=== PATIENT | female | born 1950 | race Caucasian/White ===

== ENCOUNTER 2017-06-19 08:00 | Outpatient (CLI) | payer MEDICARE | END 2017-06-19 08:01 | disposition home or self-care (01) | LOC: BICULT 08:00 | PROVIDERS: ATTEND Internal Medicine Nephrology | DX: N18.9 Chronic kidney disease, unspecified (principal); I71.4 Abdominal aortic aneurysm, without rupture; Z90.81 Acquired absence of spleen | CPT/HCPCS: 76700; 93976 ==

== ENCOUNTER 2017-08-07 12:41 | Outpatient (CLI) | payer MEDICARE | END 2017-08-07 12:42 | disposition home or self-care (01) | LOC: BICCT 12:41 | PROVIDERS: ATTEND Family Medicine | DX: J32.9 Chronic sinusitis, unspecified (principal); J34.1 Cyst and mucocele of nose and nasal sinus ==

== ENCOUNTER 2018-12-04 08:51 | Outpatient (CLI) | payer MEDICARE | END 2018-12-04 08:52 | disposition home or self-care (01) | LOC: CTENTCT 08:51 | PROVIDERS: ATTEND Otolaryngology Plastic Surgery within the Head & Neck | DX: J32.9 Chronic sinusitis, unspecified (principal) | CPT/HCPCS: 70486 ==

== ENCOUNTER 2019-03-30 06:48 | Day surgery (SDC) | payer MEDICARE ==
[2019-03-27 12:49] VITALS: BMI 18.8
--- NOTE | 2019-03-30 10:24 | OP ---
DATE OF PROCEDURE: 03/30/2019 PREPROCEDURE DIAGNOSES: 1. Reflux. 2. Epigastric pain, postprandial. 3. Early satiety. 4. Weight loss. 5. Normal comprehensive metabolic profile and CBC. POSTPROCEDURE DIAGNOSES: 1. Hiatal hernia. 2. Mild gastritis. Neither of which explained the patient's symptoms. PROCEDURE PERFORMED: Esophagogastroduodenoscopy with biopsy. RECOMMENDATIONS: CT scan of the abdomen and pelvis later this week and follow up in the office quickly after that. ANESTHESIA: TIVA. PROCEDURE IN DETAIL: The patient was informed of the risks, benefits, and possible complications of endoscopy including perforation, reaction to medication, and aspiration. Informed consent was obtained. The patient was brought to endoscopy suite, where she was sedated in gradual fashion. Once she was comfortable, a bite block was placed inside her orifice. The endoscope was advanced through the esophagus, stomach, and second and third portions of the duodenum and was slowly removed. The esophagus was normal. There was about 4 to 5 cm hiatal hernia, sliding type. There was no evidence of stricture in the esophagus. The hiatal hernia was normal without any Yuan ulcers or erosions or masses or lesions. Retroflexed views were normal in this area, and then evaluation of the entire stomach revealed good distention. There was some old coffee-ground material in the stomach, but no ulcers, masses, or lesions were seen. Stomach had normal distensibility. Pyloric channel was patent. Duodenum was normal to third portion. Retroflexed views in the stomach were otherwise normal. There was mild erythema in the antrum. Biopsies were obtained from this area. The stomach was then desufflated. The scope was removed. The patient tolerated the procedure well. There were no complications. Job ID: [id number]
[2019-03-30] MEDS ORDERED: PROPOFOL 200 MG/20 ML VIAL ONE (13:16)
== END 2019-03-30 10:40 | disposition home or self-care (01) ==
LOC: SDC 06:48
PROVIDERS: ATTEND Internal Medicine Gastroenterology
PROC: 0DD78ZX Extraction of Stomach, Pylorus, Via Natural or Artificial Opening Endoscopic, Diagnostic (ICD-10-PCS; principal; 2019-03-30)
DX: K31.89 Other diseases of stomach and duodenum (principal); K21.9 Gastro-esophageal reflux disease without esophagitis; K44.9 Diaphragmatic hernia without obstruction or gangrene; I25.10 Atherosclerotic heart disease of native coronary artery without angina pectoris; I25.2 Old myocardial infarction; I10 Essential (primary) hypertension; E78.00 Pure hypercholesterolemia, unspecified; F17.200 Nicotine dependence, unspecified, uncomplicated; R63.4 Abnormal weight loss; Z68.1 Body mass index [BMI] 19.9 or less, adult; Z79.82 Long term (current) use of aspirin; Z79.899 Other long term (current) drug therapy; Z88.2 Allergy status to sulfonamides; Z88.5 Allergy status to narcotic agent
CPT/HCPCS: 88305; 88312; J2704

== ENCOUNTER 2019-04-03 12:26 | Outpatient (CLI) | payer MEDICARE ==
--- NOTE | 2019-04-03 13:32 | CT ---
CT ABDOMEN AND PELVIS WITH IV CONTRAST 04/03/2019 CLINICAL INFORMATION: Epigastric abdominal pain with nausea vomiting and weight loss. COMPARISON: None. Technique: Multiple contiguous axial CT images are obtained through the abdomen and pelvis with IV contrast. Cor onal reformatted images are provided. FINDINGS: Lower Chest: There is mild elevation of the left hemidiaphragm with mild volume loss present at each lung base. Vessels: Vascular calcifications are seen in the coronary arteries. There is eccentric atheroscleroti c plaque and calcifications involving the visualized distal thoracic aorta. The thoracic aorta at the level of the aortic hiatus measures 3.1 cm with prominent eccentric mural thrombus. There is a ju xtarenal abdominal aortic aneurysm with prominent mural thrombus. This aneurysm measures 5.3 cm transverse x4.4 cm AP with greatest measurement on ultrasound examination on 06/19/2017 of 4.2 cm. Th ere is prominent calcified atherosclerotic plaque and atherosclerotic irregularity involving the abdominal aorta. Just below the level of the infrarenal abdominal aortic aneurysm which extends for a length of 5.9 cm is a focal area of ectasia with eccentric thrombus. Dense vascular calcifications are seen involving the iliac arteries which limits evaluation of the lumen of the iliac arteries edwige cially on the right. Abdomen: Portal vein:Patent. Gallbladder: Within normal limits for CT imaging. Liver: A tiny punctate too small to characterize hypodense lesion is seen in the right hepatic lobe. The liver otherwise has a normal CT appearance. Spleen: Not visualized and likely surgically absent. Pancreas: within normal limits. Adrenals: There is mild nonspecific adrenal thickening. There is a small 1 cm nodule involving the ri ght adrenal gland which cannot be further characterized on this nonenhanced CT scan exam. Kidneys: Subcentimeter too small to characterize hypodense lesions are seen in each kidney. Mild deborah l cortical scarring is seen at the inferior pole right kidney. There is no hydronephrosis Bowel: A small hiatal hernia is present. Loops of small bowel are normal in caliber. Small to moderat e amount of retained fecal material is seen in the colon. Appendix: Not visualized, but there are no secondary signs to suggest appendicitis. Peritoneum: No ascites or free air; no fluid collection. Mesentery and Retroperitoneum: No enlarged mesenteric or retroperitoneal lymph nodes. Abdominal Wall: within normal limits. Pelvis: Reproductive Organs: Evidence of hysterectomy. Pelvis within normal limits. Bladder: within normal limits. Bones: Degenerative changes are seen in the spine. IMPRESSION: 1. Large juxtarenal abdominal aortic aneurysm with large amount of mural thrombus with greatest trans verse measurement of 5.3 cm. The lumen at this level measures 1.9 cm. Focal area of ectasia in the abdominal aorta is seen just below the level of the aneurysm. There is also mild aneurysmal dilatatio n of the aorta at the level of the aortic hiatus measuring 3.1 cm. 2. Approximately 10 mm right adrenal nodule which cannot be further characterized on this exam. Nonen hanced CT abdomen with be helpful for further evaluation. 3. Small hiatal hernia. 4. Subcentimeter too small to characterize hypodense lesion right hepatic lobe with subcentimeter too small to characterize hypodense lesions in each kidney. 5. Hysterectomy.
== END 2019-04-03 12:27 | disposition home or self-care (01) ==
LOC: BICCT 12:26
PROVIDERS: ATTEND Internal Medicine Gastroenterology
DX: R10.13 Epigastric pain (principal); R11.2 Nausea with vomiting, unspecified; R63.4 Abnormal weight loss; I71.4 Abdominal aortic aneurysm, without rupture; I74.09 Other arterial embolism and thrombosis of abdominal aorta; E27.8 Other specified disorders of adrenal gland; K44.9 Diaphragmatic hernia without obstruction or gangrene; N28.9 Disorder of kidney and ureter, unspecified; K76.9 Liver disease, unspecified; Z90.710 Acquired absence of both cervix and uterus
CPT/HCPCS: 74177

== ENCOUNTER 2019-06-11 12:18 | Outpatient (CLI) | payer MEDICARE ==
[2019-06-11 13:07] LABS: #Basophils 0.1 thou/uL (0.0-0.2); #Eosinphils 0.2 thou/uL (0.0-0.7); #Lymphocytes 3.5 thou/uL (1.20-3.40); #Monocytes 0.7 thou/uL (0.11-0.59); #Neutrophils 4.1 thou/uL (1.40-6.50); %Basophils 1.4 % (0.0-1.0); %Eosinophils 2.9 % (0.0-10.0); %Lymphocytes 40.5 % (21.0-51.0); %Monocytes 7.9 % (0.0-10.0); %Neutrophils 47.3 % (42.0-75.0); Hemoglobin 15.5 g/dL (12.0-16.0); Mean Corpuscular HGB CONC 32.9 g/dL (32.0-36.0); Mean Corpuscular Hemoglobin 30.7 pg (27.0-31.0); Mean Corpuscular Volume 93.3 fL (78.0-98.0); Mean Platelet Volume 7.2 fL (7.4-10.4); Platelet Count 384 thou/uL (130-400); RBC Distribution Width 13.7 % (11.5-14.5); Red Blood Cell (RBC) Count 5.07 mill/uL (4.20-5.40); White Blood Cell (WBC) Count 8.6 thou/uL (4.8-10.8)
[2019-06-11 13:31] LABS: ALT (SGPT) 17 U/L (8-55); AST (SGOT) 21 U/L (5-34); Albumin 4.5 g/dL (3.4-4.8); Alkaline Phosphatase 97 U/L (40-110); Anion Gap 12 mmol/L (10-20); BUN (Urea Nitrogen) 10 mg/dL (9.8-20.1); Bilirubin, Total 0.5 mg/dL (0.2-1.2); Calc. Creatinine Clearance 0 mL/min (70-130); Calcium 9.9 mg/dL (7.8-10.44); Carbon Dioxide 29 mmol/L (23-31); Chloride 105 mmol/L (98-107); Estimated GFR-MDRD 76; Globulin 3.3 g/dL (2.4-3.5); Glucose 106 mg/dL (83-110); Potassium 3.9 mmol/L (3.5-5.1); Protein, Total 7.8 g/dL (6.0-8.3); Sodium 142 mmol/L (136-145)
== END 2019-06-11 12:19 | disposition home or self-care (01) ==
LOC: LABBT 12:18
PROVIDERS: ATTEND Internal Medicine Cardiovascular Disease
DX: Z01.818 Encounter for other preprocedural examination (principal); I25.10 Atherosclerotic heart disease of native coronary artery without angina pectoris
CPT/HCPCS: 80053; 85025; 93005; 93010

== ENCOUNTER 2019-06-18 05:55 | Day surgery (SDC) | payer MEDICARE ==
[2019-06-11 12:25] VITALS: BMI 19.2
[2019-06-18] MEDS ORDERED: Heparin (Artline) 1,000 ML ONE (06:30)
[2019-06-18] MEDS ORDERED: Lidocaine 1% (PF) 30 ML VIAL ONE ×2 (06:30→07:21)
[2019-06-18] MEDS ORDERED: Heparin 10,000 UNITS/1 ML VIAL ONE (06:30)
[2019-06-18 06:52] LABS: Cardiac Risk 2.9 (Less than 4.5)
[2019-06-18] MEDS ORDERED: Midazolam HCl 2 mg/2 ml Vial ONE (06:59)
[2019-06-18] MEDS ORDERED: Fentanyl 100 MCG/2 ML VIAL ONE (07:00)
[2019-06-18] MEDS ORDERED: Atropine Sulfate 1 mg/10 ml Syringe ONE (07:29)
[2019-06-18] MEDS ORDERED: Protamine Sulfate 50 MG/5 ML VIAL ONE (07:48)
[2019-06-18] MEDS ORDERED: Iopamidol 370 76% 100 ML VIAL ONE (14:26)
[2019-06-18] MEDS ORDERED: Iopamidol 370 76% 50 ML VIAL FS ONE (14:26)
== END 2019-06-18 15:08 | disposition home or self-care (01) ==
LOC: CCL 05:55
PROVIDERS: ATTEND Internal Medicine Cardiovascular Disease
PROC: 4A023N7 Measurement of Cardiac Sampling and Pressure, Left Heart, Percutaneous Approach (ICD-10-PCS; principal; 2019-06-18)
PROC: B2111ZZ Fluoroscopy of Multiple Coronary Arteries using Low Osmolar Contrast (ICD-10-PCS; 2019-06-18)
DX: I25.10 Atherosclerotic heart disease of native coronary artery without angina pectoris (principal); I71.6 Thoracoabdominal aortic aneurysm, without rupture; E78.00 Pure hypercholesterolemia, unspecified; I11.9 Hypertensive heart disease without heart failure; F32.9 Major depressive disorder, single episode, unspecified; H54.62 Unqualified visual loss, left eye, normal vision right eye; Z86.73 Personal history of transient ischemic attack (TIA), and cerebral infarction without residual deficits; Z87.891 Personal history of nicotine dependence; Z79.82 Long term (current) use of aspirin; Z79.899 Other long term (current) drug therapy; Z88.2 Allergy status to sulfonamides; Z88.5 Allergy status to narcotic agent; Z95.5 Presence of coronary angioplasty implant and graft
CPT/HCPCS: 76942; 80061; 85347; 93458; 99152; 99153; C1769; J0461; J1644; J2001; J2250; J2720; J3010; Q9967

== ENCOUNTER 2019-06-29 11:05 | Outpatient (CLI) | payer MEDICARE ==
--- NOTE | 2019-06-29 11:54 | RAD ---
PA AND LATERAL CHEST: Date: 06/29/2019 HISTORY: Dyspnea. COMPARISON: None available. FINDINGS: Heart size within normal limits. There are atherosclerotic changes of the aorta. There are radiograph ic changes of COPD. Nodular appearing density in the left base is most likely related to nipple shado w. There is an area of nodularity in the right mid lung field directly beneath the minor fissure. Thi s is possibly related to the anterior aspect of a right fifth rib, but I see what I believe to be a v ague nodularity density on the lateral view, which makes me believe this is probably within the right middle lobe, not definitively calcified., although fairly dense in appearance. IMPRESSION: Suggestion of possible circumscribed nodular density within the right middle lobe, possibly a granulo ma but not definitive. Noncontrast CT of the chest would be suggested for assessment. It would be hel pful if there are any old chest x-rays for comparison. POS: PRINCESS
== END 2019-06-29 11:06 | disposition home or self-care (01) ==
LOC: RAD 11:05
PROVIDERS: ATTEND Internal Medicine Pulmonary Disease
DX: R06.00 Dyspnea, unspecified (principal)
CPT/HCPCS: 71046

== ENCOUNTER 2019-11-15 11:36 | Emergency (ER) | payer MEDICARE ==
[~2019-11-15 11:36] MED LIST: Iopamidol-370 76% 500 ML 1 ML ONE
--- NOTE | 2019-11-15 12:17 | RAD ---
Chest one view HISTORY: Recent abdominal surgery. Dyspnea. Leukocytosis. COMPARISON: 06/29/2019. FINDINGS: Cardiac silhouette and pulmonary vasculature are unremarkable. Mediastinum is midline with aortic calcification. Blunting of each costophrenic angle is present with ill-defined parenchymal opacity at each base havi ng the appearance of atelectasis. Calcified granulomata/hamartoma are again demonstrated. No evidence of pneumothorax. IMPRESSION : Small bilateral pleural effusions and bibasilar atelectasis. Atherosclerosis.
[2019-11-15 12:48] LABS: ALT (SGPT) 37 U/L (8-55); AST (SGOT) 48 U/L (5-34); Albumin 3.3 g/dL (3.4-4.8); Alkaline Phosphatase 110 U/L (40-110); Anion Gap 14 mmol/L (10-20); BUN (Urea Nitrogen) 13 mg/dL (9.8-20.1); Bilirubin, Total 2.2 mg/dL (0.2-1.2); Calc. Creatinine Clearance 0 mL/min (70-130); Calcium 8.7 mg/dL (7.8-10.44); Carbon Dioxide 27 mmol/L (23-31); Chloride 100 mmol/L (98-107); Estimated GFR-MDRD 79; Globulin 3.6 g/dL (2.4-3.5); Glucose 171 mg/dL (83-110); Protein, Total 6.9 g/dL (6.0-8.3); Sodium 138 mmol/L (136-145)
[2019-11-15 13:04] LABS: Hemoglobin 11.8 g/dL (12.0-16.0); Mean Corpuscular HGB CONC 31.6 g/dL (32.0-36.0); Mean Corpuscular Hemoglobin 31.2 pg (27.0-31.0); Mean Corpuscular Volume 98.7 fL (78.0-98.0); Mean Platelet Volume 8.8 fL (7.4-10.4); Platelet Count 551 thou/uL (130-400); RBC Distribution Width 15.8 % (11.5-14.5); Red Blood Cell (RBC) Count 3.78 mill/uL (4.20-5.40); White Blood Cell (WBC) Count 22.9 thou/uL (4.8-10.8)
[2019-11-15 13:10] LABS: CKMB 1.1 ng/mL (0-6.6)
[2019-11-15 13:20] LABS: Band 9 % (5-11); Helmet Cells SLIGHT = 2-5 cells (100X) (0-1/hpf); Hypochromia SLIGHT = 6-15 cells (100X) (0-5/hpf); Lymphocytes 6 % (21-51); MDiff Complete? YES; Macrocytosis SLIGHT = 6-15 cells (100X) (0-5/hpf); Monocytes 5 % (0-10); Neutrophil 79 % (42-75); Platelet Morphology Comment Appears Increased; Polychromasia SLIGHT = 2-3 cells (100X) (0-2/hpf); Reactive Lymphocytes 1 % (0-10); Schistocytes SLIGHT = 2-5 cells (100X) (0-1/hpf); Target Cells SLIGHT = 2-5 cells (100X) (0-1/hpf); Tear Drops SLIGHT = 2-5 cells (100X) (0-1/hpf)
[2019-11-15] MEDS ORDERED: Fentanyl 100 MCG/2 ML VIAL ONE (14:40)
--- NOTE | 2019-11-15 15:29 | CT ---
EXAM: CT ANGIOGRAM CHEST WITH 3D RENDERING ABDOMEN AND PELVIC CT SCAN POST CONTRAST: FINDINGS: Moderate bilateral pleural effusions. Bibasilar atelectatic changes. Evidence for hiatal hernia. No c onvincing CT evidence for acute pulmonary embolism. Fairly extensive aortic ectasia and atherosclerot ic change. Evidence for post-operative changes of the distal thoracic aorta. Several small punctate f oci of gas are noted in the right side of the lower thoracic aorta/upper abdominal aorta junction reg ion. There is some fairly extensive retroperitoneal and periaortic abnormal density, probably post-op erative seroma or other fluid. There is a fairly large retroperitoneal collection of fluid on the rig ht side extending into the posterior right pararenal space region. This has more of the appearance of a large hematoma/seroma, but certainly the possibility of abscess or infection is a consideration. T here is minimal free fluid on the left side in the left colonic gutter as well as some free fluid in the pelvis. There are several foci of some displaced calcified plaque or some residual distal abdomin al aortic wall secondary to the surgery. The distal inferior vena cava below the level of the renal v eins is indistinct and somewhat low in density, possibly representing some narrowing. I think will be unlikely to represent thrombus although I cannot exclude that possibility. No evidence for large or small bowel obstruction. There is some irregularity of the anterior abdominal wall to the left of the umbilicus, probably post-operative. There is no evidence for elizabeth contrast extravasation to suggest an active contrast leak. IMPRESSION: No CT evidence for acute pulmonary embolism. Bilateral pleural effusions and bilateral lower lobe ate lectatic changes. Extensive post-operative changes involving the lower thoracic and abdominal aorta c onsistent with history of recent aneurysm repair. There are several foci of gas within this area of r epair. Reportedly the repair occurred on 11-04-2019, this could possibly represent some residual post- operative air although the possibility of developing retroperitoneal and periaortic infection is a de finite consideration. Some extensive posterior aortic and retroperitoneal abnormal soft tissue change s extending around the region of the vena cava and extending into the posterior right retroperitoneum and right posterior pararenal region probably representing hematoma. The possibility of abscess or i nfected hematoma is a definite consideration, particularly given abnormal white blood cell count. Pratima dence for free intraperitoneal fluid within the pelvis and colonic gutters. Other findings as above. Findings discussed with Dr. Ott in the Emergency Department at 2:10 p.m. [facility]
== END 2019-11-15 15:49 | disposition short-term general hospital (02) ==
LOC: ERS 11:36
DX: D72.829 Elevated white blood cell count, unspecified (principal); I10 Essential (primary) hypertension; R09.02 Hypoxemia; I25.2 Old myocardial infarction; E78.5 Hyperlipidemia, unspecified; E78.00 Pure hypercholesterolemia, unspecified; Z87.891 Personal history of nicotine dependence; Z79.899 Other long term (current) drug therapy; Z79.82 Long term (current) use of aspirin
CPT/HCPCS: 36415; 71045; 71275; 74160; 80053; 82553; 83880; 84484; 85025; 93005; 96374; J3010; Q9967